=== PATIENT | male | born 1965 | race Caucasian/White ===

== ENCOUNTER 2020-02-07 20:00 | Outpatient (CLI) | payer MEDICARE, MEDICAID, SELFPAY | END 2020-02-07 20:01 | disposition home or self-care (01) | LOC: SLEEP 02-08 09:04 | PROVIDERS: Family Provider Internal Medicine; Visit Provider Internal Medicine | DX: G47.33 Obstructive sleep apnea (adult) (pediatric) (principal) | CPT/HCPCS: 95811 ==

== ENCOUNTER → 2020-05-15 11:27 | Outpatient (BNVA) | payer MEDICARE, SELFPAY | PROVIDERS: Family Provider Internal Medicine; Visit Provider Nurse Practitioner Family | DX: Z20.828 Contact with and (suspected) exposure to other viral communicable diseases (principal) | CPT/HCPCS: 87635 ==

== ENCOUNTER 2020-09-11 06:55 | Outpatient (CLI) | payer MEDICARE, MEDICAID, SELFPAY ==
--- NOTE | 2020-09-11 07:07 | US_ITS ---
WS: [id number] ULTRASOUND ABDOMEN LIMITED CLINICAL INFORMATION: ABNORMAL LIVER ENZYMES COMPARISON: None. FINDINGS: Liver Size: Normal. Craniocaudal length: 13.6 cm. Echogenicity: Normal. Surface nodularity: None. Mass (size and location): None. Bile ducts Intrahepatic ducts: Normal. Common bile duct diameter: 0.4 cm. Gallbladder Removed Pancreas Not well visualized Right kidney: Simple right renal cysts. Largest measures 2.4 x 2.5 CM. Hydronephrosis: None. Size: 12.6 cm x 5.1 cm x 5.2 cm. Abdominal aorta and IVC Visualized portions are normal. Ascites: None. US/US abdomen limited [id number] IMPRESSION: 1. Normal liver. 2. Prior cholecystectomy. 3. No hydronephrosis in right kidney. 4. Simple right renal cysts.
== END 2020-09-11 06:56 | disposition home or self-care (01) ==
LOC: RAD 07:04
PROVIDERS: Family Provider Internal Medicine; Visit Provider Internal Medicine
DX: R94.5 Abnormal results of liver function studies (principal); N28.1 Cyst of kidney, acquired; Z90.49 Acquired absence of other specified parts of digestive tract
CPT/HCPCS: 76705

== ENCOUNTER 2021-06-26 14:23 | Outpatient (CLI) | payer MEDICARE, MEDICAID, SELFPAY ==
--- NOTE | 2021-06-26 15:27 | MR_ITS ---
WS: [id number] MRI RIGHT SHOULDER NONCONTRAST TECHNIQUE: Sagittal T2, coronal T1, T2 and proton density imaging. Axial gradient PDE imaging. CLINICAL INFORMATION: SHOULDER PAIN, RIGHT/ARM PAIN, RIGHT COMPARISON: None. FINDINGS: Degenerative arthritis at the AC joint with moderate downsloping of the acromion. Complete loss of th e subacromial space. Edema at the AC joint. Chronic thinning of the supraspinatus distally. Anterior distal fibers appear intact. High-grade comp lete tear involving the infraspinatus tendon extending into the dorsal junction of the supraspinatus. Retraction of the infraspinatus to the level of the glenohumeral joint. Normal teres minor Tiny atrophic biceps tendon remnant in the bicipital groove likely chronically tor n. Intra-articular biceps tendon appears diminutive. Glenoid labrum appears grossly normal. Degenerat maria alejandra cystic change the greater tuberosity. Normal bone marrow signal in the glenoid. MR/MR shoulder RT wo con* [id number] IMPRESSION: 1. Moderate degenerative arthritis at the AC joint with moderate downsloping o f the acromion and loss of the subacromial space. Edema at the AC joint. 2. Chronic thinning of the distal supraspinatus which appears intact anteriorl y. 3. High-grade complete tear of the infraspinatus extending to the dorsal supra spinatus muscle fibers. Retraction of the infraspinatus tendon to the level of glenohumeral joint. 4. Rotator cuff is otherwise intact. 5. Diminutive biceps tendon remnant in the bicipital groove likely chronically torn. Small intra-articular biceps tendon. 6. Cystic degenerative changes involving the greater tuberosity. 7. Small joint effusion.
== END 2021-06-26 14:24 | disposition home or self-care (01) ==
PROVIDERS: Visit Provider Nurse Practitioner Family
DX: M25.411 Effusion, right shoulder (principal); S46.811A Strain of other muscles, fascia and tendons at shoulder and upper arm level, right arm, initial encounter; X58.XXXA Exposure to other specified factors, initial encounter; M19.011 Primary osteoarthritis, right shoulder
CPT/HCPCS: 73221

== ENCOUNTER 2023-03-24 09:22 | Outpatient (CLI) | payer MEDICARE, MEDICAID, SELFPAY ==
--- NOTE | 2023-03-24 10:02 | XR_ITS ---
WS: [id number] XR lumbar spine min 4V [id number] REASON FOR EXAM: LUMBAGO FINDINGS: Moderate rotatory scoliosis of the lumbar cervical spine convex left. Moderate straightening of the n ormal lumbar lordosis. Moderate narrowing of the intervertebral disc spaces with moderate osteophytosis L1-L5. Degenerative gas in the L4-L5 disc space. There is 4 to 5 mm of anterolisthesis of L5 in relation to L4 in the neutral position. This is accent uated by 1 to 2 mm with flexion and reduced 1 to 2 mm with extension. There is moderate degenerative change in the facet joints L3-S1. XR/XR lumbar spine min 4V [id number] IMPRESSION: Significant degenerative spondylosis which has progressed compared to 10/10/2015 . This is most notable at the L4-L5. Interspace.
--- NOTE | 2023-03-24 10:02 | XR_ITS ---
WS: [id number] XR shoulder RT min 2V* [id number] REASON FOR EXAM: R SHOULDER PAIN FINDINGS: No fracture or focal bone lesion. Moderate narrowing of the acromial clavicular joint space with moderate subchondral sclerosis and ost eophytosis. The glenohumeral joint space is not well demonstrated. There may be mild to moderate narrowing with s ubchondral sclerosis of the glenoid. There is mild to moderate subchondral sclerosis and cystic change in the biceps tuberosity. XR/XR shoulder RT min 2V* [id number] IMPRESSION: Moderate osteoarthritis in the acromioclavicular joint. Mild to moderate osteoarthritis in the glenohumeral joint. Mild to moderate rotator cuff tendon arthropathy.
[2023-03-24 10:08] LABS: Basophils # 0.1 10^3/uL (0.0-0.1); Basophils % 1.4 %; Eosinophils # 0.3 10^3/uL (0.0-0.8); Eosinophils % 4.5 %; Hematocrit 37.4 % (42.0-52.0); Hemoglobin 12.6 g/dL (11.7-16.6); Lymphocytes # 2.4 10^3/uL (0.8-4.8); Lymphocytes % 34.2 %; Mean Corpuscular HGB Conc 33.7 g/dL (30.0-36.0); Mean Corpuscular Hemoglobin 31.9 pg (28.0-34.0); Mean Corpuscular Volume 94.7 fl (80-94); Mean Platelet Volume 10.5 fL (7.4-10.4); Monocytes # 0.5 10^3/uL (0.2-0.9); Monocytes % 7.2 %; Neutrophils # 3.66 10^3/uL (1.8-7.7); Neutrophils % 52.6 %; Nucleated Red Blood Cells % 0 %; Platelet Count 196 10^3/cmm (130-400); Red Blood Count 3.95 10^6/uL (4.1-5.3)
== END 2023-03-24 09:23 | disposition home or self-care (01) ==
PROVIDERS: PCP Nurse Practitioner Family; Visit Provider Nurse Practitioner Family
DX: E78.00 Pure hypercholesterolemia, unspecified (principal); M54.50 Low back pain, unspecified; M47.896 Other spondylosis, lumbar region; M19.011 Primary osteoarthritis, right shoulder
CPT/HCPCS: 36415; 72110; 73030; 85025

== ENCOUNTER 2023-08-14 09:43 | Outpatient (CLI) | payer MEDICARE, SELFPAY ==
--- NOTE | 2023-08-14 09:52 | MR_ITS ---
WS: [id number] MRI LUMBAR SPINE WITH CONTRAST TECHNIQUE: Sagittal T1, T2 and STIR imaging. Axial T1 and T2 imaging. Post gadolinium imaging was obt ained. CLINICAL INFORMATION: LUMBOSACRAL SPONDYLOSIS W/RADICULOPATHY COMPARISON: MRI 2019 FINDINGS: Mild lumbar curve. No acute compression. Advanced spondylitic changes lumbar spine. Incidental harjeet iomas most prominent at T12 unchanged. Small incidental hemangioma T9. Disc space narrowing lumbar sp ine has progressed compared to previous. No abnormal gadolinium enhancement. L1-L2: Mild disc bulging with a LEFT subarticular protrusion. Impingement LEFT subarticular recess an d traversing LEFT L2 nerve root. Mild central canal stenosis. Mild LEFT foraminal narrowing. L2-L3: Moderate central canal stenosis due to disc bulge with facet arthropathy and ligamentum flavum hypertrophy. Tiny annular fissure. Impingement subarticular recess bilaterally. Mild LEFT foraminal narrowing. L3-L4: Mild annular bulging with mild central canal stenosis. Impingement traversing L4 nerve roots b ilaterally. Moderate RIGHT foraminal narrowing. L4-L5: Prior laminectomy defects. Moderate to severe RIGHT foraminal narrowing. Impingement of the ex iting RIGHT L4 nerve root. Mild LEFT foraminal narrowing. Moderate facet arthropathy. L5-S1: Minimal annular bulging. Moderate facet arthropathy. Spinal canal and foramen are patent. Visualized pelvic bony structures: Normal. Paravertebral soft tissues: Normal. Bilateral renal cysts. IMPRESSION: 1. Moderate central canal stenosis L2-3 slightly progressed compared to previous with narrowing of t he subarticular recess bilaterally. 2. Mild central canal stenosis L3-4 slightly progressed compared to previous with slight impingement on the traversing L4 nerve roots bilaterally. 3. Remote laminectomy L4-5. Spinal canal appears patent at this level. 4. Disc bulging with impingement on the LEFT subarticular recess L1-2 and traversing LEFT L2 nerve r oot. This is progressed compared to previous. 5. Moderate RIGHT L3-4 foraminal narrowing. 6. Moderate to severe RIGHT L4-5 foraminal narrowing 7. Moderate facet arthropathy L3-L5.
[2023-08-14] MEDS: gadobenate dimeglumine 20 mL vial IV (10:15)
== END 2023-08-14 09:44 | disposition home or self-care (01) ==
LOC: RAD 09:45
PROVIDERS: PCP Nurse Practitioner Family; Visit Provider General Practice
DX: M47.27 Other spondylosis with radiculopathy, lumbosacral region (principal); M48.061 Spinal stenosis, lumbar region without neurogenic claudication; M51.36 Other intervertebral disc degeneration, lumbar region
CPT/HCPCS: 72158; A9577

== ENCOUNTER 2024-03-19 07:53 | Outpatient (CLI) | payer MEDICARE, SELFPAY ==
--- NOTE | 2024-03-19 07:59 | CT_ITS ---
WS: [id number] LDCT LUNG CANCER SCREENING TECHNIQUE: Noncontrast CT of the chest with coronal and sagittal reformatted images. CLINICAL INFORMATION: FORMER SMOKER COMPARISON: None. DLP: 75.47 mGy.cm DIvol: Mean CTDIvol: 1.30 (mGy) All CT scans at [facility] use at least one of these dose optimization techniques: automat ed exposure control; mA and/or kV adjustment per patient size (includes targeted exams where dose is matched to clinical indication); or iterative reconstruction. FINDINGS: Numerous scattered noncalcified nodules in both lungs largest measuring 5 to 6 mm. Nodule RIGHT upper lobe measuring 4 mm. RIGHT upper lobe nodule or scarring measuring 6 mm. A few ti ny subpleural nodules. RIGHT lower lobe nodule measuring 4 mm and 5 mm. Mild chronic emphysematous ch anges. Small nodule in the lingula measuring 3 mm. LEFT lower lobe nodule measuring 4 mm. RIGHT lower lobe nodule measuring 6 mm. Normal caliber thoracic aorta. Calcification. Coronary calcification. No mediastinal or hilar lymphad enopathy. No axillary lymphadenopathy. Cholecystectomy clips. Normal GE junction. Adrenal glands are normal. Partially visualized RIGHT kellen l cyst 2.5 cm. Mild thoracic curve. Mild thoracic kyphosis. CT/CT lung screening [id number] IMPRESSION: Numerous scattered noncalcified nodules the largest nodules measuri ng 5 to 6 mm. Recommend 6-month follow-up. No prior comparisons. LUNG-RADS: 3-Probably Benign FOLLOW UP: 6 Month LDCT
== END 2024-03-19 07:54 | disposition home or self-care (01) ==
LOC: RAD 07:54
PROVIDERS: PCP Nurse Practitioner Family; Visit Provider Family Medicine
DX: R91.8 Other nonspecific abnormal finding of lung field (principal); Z87.891 Personal history of nicotine dependence; Z90.49 Acquired absence of other specified parts of digestive tract; Z96.89 Presence of other specified functional implants
CPT/HCPCS: 71271

== ENCOUNTER 2024-10-18 10:11 | Outpatient (CLI) | payer MEDICARE, SELFPAY ==
--- NOTE | 2024-10-18 10:14 | CT_ITS ---
WS: [id number] CT chest wo con [id number] HISTORY: MULTIPLES NODULES OF LUNG TECHNIQUE: Axial imaging performed through the thorax. Coronal and sagittal reformats are submitted. All CT scans at [facility] use at least one of these dose optimization techniques: automated exposure control; mA and/or kV adjustment per patient size (includes targeted exams where dose is matched to clinical indication); or iterative reconstruction. CONTRAST: None DLP: 482.46 mGy.cm COMPARISON: CT 03/19/2024 Lungs and central airway: Numerous bilateral pulmonary nodules are noncalcified and subcentimeter. Nodules range in size from 2 mm to 7 mm. No pneumonia. No mass. No endobronchial lesions. Pleura: Normal. No pleural effusion. Heart and pericardium: Normal size heart with no pericardial effusion. Mediastinum and juliet: No mediastinum or hilar adenopathy. Vessels: Atherosclerosis aorta. No aneurysm. Mild pulmonary artery ectasia and dilatation. Chest wall and lower neck: No soft tissue masses. Upper abdomen: Bilateral low-attenuation masses in the upper pole of each kidney. Masses were described as cysts on a prior CT from 2019. Normal adrenal glands. Prior cholecystectomy. Osseous structures: T12 hemangioma. Mild thoracic spondylosis. CT/CT chest wo con [id number] IMPRESSION: 1. No interval change in the numerous bilateral, noncalcified and subcentimete r pulmonary nodules. Recommend additional 6-month chest CT follow-up. 2. No mediastinal or hilar adenopathy. 3. Bilateral low-attenuation renal masses. Cysts were described in 2019. 4. Prior cholecystectomy. 5. Mild atherosclerosis aorta.
== END 2024-10-18 10:12 | disposition home or self-care (01) ==
LOC: RAD 10:13
PROVIDERS: PCP Family Medicine; Visit Provider Family Medicine
DX: R91.8 Other nonspecific abnormal finding of lung field (principal); N28.89 Other specified disorders of kidney and ureter; Z90.49 Acquired absence of other specified parts of digestive tract; D18.09 Hemangioma of other sites; I70.0 Atherosclerosis of aorta; I28.1 Aneurysm of pulmonary artery; M47.894 Other spondylosis, thoracic region
CPT/HCPCS: 71250